=== PATIENT | female | born 1950 | race Hispanic/Latino ===

== ENCOUNTER 2018-03-27 08:11 | Emergency (ER) | payer MEDICARE ==
[2018-03-27 08:20] VITALS: TEMP 97; O2SAT 98
[2018-03-27 08:21] VITALS: BMI 35.5
--- NOTE | 2018-03-27 08:52 | ED PDOC ---
HPI: General Adult Time Seen by Provider: 03/27/18 08:38 Chief Complaint (Nursing): Abnormal Skin Integrity Chief Complaint (Provider): Left Ear Pain/Swelling History Per: Patient History/Exam Limitations: no limitations Onset/Duration Of Symptoms: Days (x2) Current Symptoms Are (Timing): Still Present Additional Complaint(s): 67-year-old female, with no significant past medical history, presenting for evaluation of left ear pain and swelling x2 days. Patient denies any fever, trauma, or discharge. PMD: Dr. Ferrell Past Medical History Vital Signs: Last Vital Signs Temp 97 F L 03/27/18 08:20 Pulse 73 03/27/18 08:20 Resp 24 03/27/18 08:20 BP 126/69 03/27/18 08:20 Pulse Ox 98 03/27/18 09:04 - Medical History PMH: Diabetes, Hyperlipidemia - Family History Family History: States: Diabetes - Home Medications Home Medications: Ambulatory Orders Medication Instructions Recorded Clindamycin [Cleocin] 300 mg PO TID #30 cap 03/27/18 Naproxen [Naprosyn] 500 mg PO Q12H #20 tab 03/27/18 - Allergies Allergies/Adverse Reactions: Allergies Allergy/AdvReac Type Severity Reaction Status Date / Time ANESTHESIA AdvReac VOMITING Uncoded 03/17/15 07:52 Review of Systems ROS Statement: Except As Marked, All Systems Reviewed And Found Negative Constitutional: Negative for: Fever ENT: Positive for: Ear Pain (left). Negative for: Ear Discharge Physical Exam - Reviewed Nursing Documentation Reviewed: Yes Vital Signs Reviewed: Yes - Physical Exam Appears: Positive for: Non-toxic, No Acute Distress Head Exam: Positive for: ATRAUMATIC Skin: Positive for: Normal Color, Warm, Dry Eye Exam: Positive for: Normal appearance ENT: Positive for: Other (left ear with mild swelling, tenderness to pinna; earlobe no fluctuance, no erythema) Neck: Positive for: Normal Cardiovascular/Chest: Positive for: Regular Rate, Rhythm. Negative for: Murmur Respiratory: Positive for: Normal Breath Sounds. Negative for: Respiratory Distress Extremity: Positive for: Normal ROM. Negative for: Deformity Neurologic/Psych: Positive for: Alert, Oriented. Negative for: Motor/Sensory Deficits - Laboratory Results Result Diagrams: 03/27/18 09:05 03/27/18 09:05 - ECG O2 Sat by Pulse Oximetry: 98 (RA) Pulse Ox Interpretation: Normal Medical Decision Making Medical Decision Making: Plan: -CMP -CBC -Clindamycin 600mg/50ml IVPB -Blood culture -Reevaluation Scribe Attestation: Documented by Isaac Hooks, acting as a scribe for Charly Jorgensen MD. Provider Scribe Attestation: All medical record entries made by the Scribe were at my direction and personally dictated by me. I have reviewed the chart and agree that the record accurately reflects my personal performance of the history, physical exam, medical decision making, and the department course for this patient. I have also personally directed, reviewed, and agree with the discharge instructions and disposition. Disposition - Clinical Impression Clinical Impression: Otitis externa - Patient ED Disposition Is Patient to be Admitted: No Counseled Patient/Family Regarding: Studies Performed, Diagnosis, Need For Followup, Rx Given - Disposition Referrals: Layton Pena MD [Staff Provider] - Disposition: Routine/Home Disposition Time: 09:35 Condition: FAIR Prescriptions: Clindamycin [Cleocin] 300 mg PO TID #30 cap Naproxen [Naprosyn] 500 mg PO Q12H #20 tab Instructions: Outer Ear Infection Forms: [employer] ([employer])
[2018-03-27] MEDS ORDERED: Clindamycin 600mg/50ml D5W 300 MG/25 ML VIAL IVPB ONE (09:15)
[2018-03-27 09:17] LABS: BASO # 0.1 K/uL (0.0-0.2); BASO % 0.8 % (0.0-2.0); EOS # 0.5 K/uL (0.0-0.7); HEMOGLOBIN 10.2 g/dL (12.0-16.0); LYMPH # 2.2 K/uL (1.0-4.3); LYMPH % 24.1 % (20.0-40.0); MEAN CELL VOLUME 75.2 fl (81.0-99.0); MEAN CORPUSCULAR HEMOGLOBIN 23.7 pg (27.0-31.0); MEAN CORPUSCULAR HGB CONC 31.5 g/dL (33.0-37.0); MEAN PLATELET VOLUME 9.4 fl (7.2-11.7); MONO # 0.7 K/uL (0.0-0.8); MONO % 7.4 % (0.0-10.0); NEUT # 5.6 K/uL (1.8-7.0); NEUT % 61.7 % (50.0-75.0); RBC 4.3 Mil/uL (3.80-5.20); RED CELL DISTRIBUTION WIDTH 17.4 % (11.5-14.5); WHITE BLOOD COUNT 9.1 K/uL (4.8-10.8)
[2018-03-27] MEDS ORDERED: Clindamycin 600mg/50ml D5W 600 MG/50 ML VIAL IVPB ONE (09:30)
[2018-03-27 09:32] LABS: ALB/GLOB RATIO 1.4 (1.0-2.1); ALT/SGPT 34 U/L (9-52); AST/SGOT 26 U/L (14-36); BLOOD UREA NITROGEN 13 mg/dl (7-17); CALCIUM 9.9 mg/dL (8.4-10.2); GFR AFRICAN-AMERICAN > 60; GFR NON-AFRICAN AMERICAN > 60
[2018-03-27 10:47] VITALS: BP 120/70; PULSE 70; RESP 20
== END 2018-03-27 10:35 | disposition home or self-care (01) ==
LOC: H.ER 08:11
DX: H60.92 Unspecified otitis externa, left ear (principal); E11.9 Type 2 diabetes mellitus without complications; E78.5 Hyperlipidemia, unspecified

== ENCOUNTER 2018-11-28 09:53 | Observation (INO) | payer MEDICARE ==
[2018-11-28 10:04] VITALS: BMI 37.5
--- NOTE | 2018-11-28 10:47 | ED PDOC ---
Lower Extremity Pain/Injury Time Seen by Provider: 11/28/18 10:15 Chief Complaint (Provider): Left Leg Pain History Per: Patient History/Exam Limitations: no limitations Onset/Duration Of Symptoms: Days (3) Current Symptoms Are (Timing): Still Present Additional Complaint(s): 68 year old female with a history of diabetes presents to the ED for an evaluation of atraumatic left leg pain onset for 3 days. Patient reports of one day of swelling. Otherwise, she denies history of DVT, chest pain or shortness of breath. PMD: Dr. Rivera ([place], [place]) Past Medical History Reviewed: Historical Data, Nursing Documentation, Vital Signs Vital Signs: Last Vital Signs Temp 98.5 F 11/28/18 10:03 Pulse 82 11/28/18 10:03 Resp 18 11/28/18 10:03 BP 154/83 H 11/28/18 10:03 Pulse Ox 96 11/28/18 10:03 - Medical History PMH: Diabetes, Hyperlipidemia - Surgical History Surgical History: No Surg Hx - Family History Family History: States: Diabetes - Social History Current smoker - smoking cessation education provided: No Alcohol: None Drugs: Denies - Home Medications Home Medications: Ambulatory Orders Medication Instructions Recorded Aspirin [Ecotrin] 81 mg PO DAILY 11/28/18 Glimepiride [amaRYL] 2 mg PO BID 11/28/18 MetFORMIN [glucoPHAGE] 1,000 mg PO BID 11/28/18 Sertraline [Zoloft] 100 mg PO DAILY 11/28/18 Simvastatin [Zocor] 40 mg PO HS 11/28/18 - Allergies Allergies/Adverse Reactions: Allergies Allergy/AdvReac Type Severity Reaction Status Date / Time ANESTHESIA AdvReac VOMITING Uncoded 03/17/15 07:52 Review of Systems ROS Statement: Except As Marked, All Systems Reviewed And Found Negative Constitutional: Negative for: Fever Cardiovascular: Negative for: Chest Pain Respiratory: Negative for: Shortness of Breath Musculoskeletal: Positive for: Leg Pain (left) Physical Exam - Reviewed Nursing Documentation Reviewed: Yes Vital Signs Reviewed: Yes - Physical Exam Appears: Positive for: Well, Non-toxic, No Acute Distress Head Exam: Positive for: ATRAUMATIC, NORMAL INSPECTION, NORMOCEPHALIC Skin: Positive for: Normal Color, Warm, Dry. Negative for: Rash Eye Exam: Positive for: EOMI, Normal appearance, PERRL Pulses-Dorsalis Pedis (L): 2+ Pulses-Dorsalis Pedis (R): 2+ Extremity: Positive for: Tenderness (left calf ), Calf Tenderness (left), Capillary Refill (less than 2 seconds ), Other (no cellulitis and neurovascular intact ). Negative for: Deformity Neurological/Psych: Positive for: Awake, Alert, Normal Tone, Oriented (x3) - Laboratory Results Result Diagrams: 11/28/18 15:11 11/28/18 15:11 - ECG O2 Sat by Pulse Oximetry: 96 (RA) Pulse Ox Interpretation: Normal Medical Decision Making Medical Decision Making: Time: 10:42 Impression: left leg pain r/o DVT Plan: Duplex lower extremity view left [US] Reevaluation 12:36 Duplex lower extremity view left [US] FINDINGS: 2-D, color and duplex Doppler analysis of the lower extremity venous circulation using routine protocol from the femoral veins through the popliteal veins. Additional imaging of the calf includes the tibialis posterior veins. The lesser saphenous and gastrocnemius veins were also evaluated. Venous compressibility: Incompletely occlusive thrombus in left popliteal vein, noncompressible. There is also occlusive thrombus in the left gastrocnemius vein. Incidental superficial thrombosis is noted in the left lesser saphenous vein. Flow and augmentation patterns: Normal. Visualized veins upper third of calf: Normal. Boss cyst: None. IMPRESSION: Incompletely occlusive thrombus in the left popliteal vein. Occlusive thrombosis of the left gastric knee medius vein. Superficial thrombosis of the left lesser saphenous vein. 12:50 Discussed results with patient at bedside 12:[address] Desouza and patient will be admitted to him for DVT lovenox ordered as renal function is ok Scribe Attestation: Documented by Dipak Pedraza, acting as a scribe for Katey Swift MD. Provider Scribe Attestation: All medical record entries made by the Scribe were at my direction and personally dictated by me. I have reviewed the chart and agree that the record accurately reflects my personal performance of the history, physical exam, medical decision making, and the department course for this patient. I have also personally directed, reviewed, and agree with the discharge instructions and disposition. Disposition - Clinical Impression Clinical Impression: DVT (deep venous thrombosis) - Patient ED Disposition Is Patient to be Admitted: Yes Counseled Patient/Family Regarding: Diagnosis - Disposition Disposition Time: 12:50 Condition: STABLE
--- NOTE | 2018-11-28 12:39 | US ---
Date of service: 11/28/2018 HISTORY: leg pain. PRIORS: None. FINDINGS: 2-D, color and duplex Doppler analysis of the lower extremity venous circulation using routine protocol from the femoral veins through the popliteal veins. Additional imaging of the calf includes the tibialis posterior veins. The lesser saphenous and gastrocnemius veins were also evaluated. Venous compressibility: Incompletely occlusive thrombus in left popliteal vein, noncompressible. There is also occlusive thrombus in the left gastrocnemius vein. Incidental superficial thrombosis is noted in the left lesser saphenous vein. Flow and augmentation patterns: Normal. Visualized veins upper third of calf: Normal. Boss cyst: None. IMPRESSION: Incompletely occlusive thrombus in the left popliteal vein. Occlusive thrombosis of the left gastric knee medius vein. Superficial thrombosis of the left lesser saphenous vein.
[2018-11-28 15:16] LABS: BASO # 0.1 K/uL (0.0-0.2); BASO % 1.4 % (0.0-2.0); EOS # 0.8 K/uL (0.0-0.7); EOS % 8.7 % (0.0-4.0); HEMOGLOBIN 11.4 g/dL (12.0-16.0); LYMPH # 3.1 K/uL (1.0-4.3); LYMPH % 34.6 % (20.0-40.0); MEAN CORPUSCULAR HEMOGLOBIN 24.4 pg (27.0-31.0); MEAN CORPUSCULAR HGB CONC 31.7 g/dL (33.0-37.0); MONO # 0.7 K/uL (0.0-0.8); MONO % 7.8 % (0.0-10.0); NEUT # 4.3 K/uL (1.8-7.0); NEUT % 47.5 % (50.0-75.0); RBC 4.69 Mil/uL (3.80-5.20); RED CELL DISTRIBUTION WIDTH 18.8 % (11.5-14.5); WHITE BLOOD COUNT 9.1 K/uL (4.8-10.8)
[2018-11-28 15:25] LABS: PROTHROMBIN TIME 11.2 Seconds (9.8-13.1)
[2018-11-28 15:42] LABS: ALB/GLOB RATIO 1.3 (1.0-2.1); ALBUMIN 4.4 g/dL (3.5-5.0); BLOOD UREA NITROGEN 17 mg/dl (7-17); CALCIUM 9.6 mg/dL (8.4-10.2); GFR NON-AFRICAN AMERICAN > 60
[2018-11-28 15:44] LABS: ALT/SGPT 35 U/L (9-52); AST/SGOT 39 U/L (14-36)
[2018-11-28] MEDS ORDERED: Enoxaparin 100 mg Syringe SC STA (16:29)
[2018-11-28] MEDS: Insulin Regular 100 units/ml SC SCH (22:33)
[2018-11-29 00:31] VITALS: O2SAT 95
[2018-11-29] MEDS ORDERED: Enoxaparin 100 mg Syringe SC SCH (04:00)
[2018-11-29 06:54] LABS: BASO # 0.1 K/uL (0.0-0.2); BASO % 0.9 % (0.0-2.0); EOS # 0.7 K/uL (0.0-0.7); EOS % 10.1 % (0.0-4.0); LYMPH # 2.8 K/uL (1.0-4.3); LYMPH % 41.4 % (20.0-40.0); MEAN CELL VOLUME 76.5 fl (81.0-99.0); MEAN CORPUSCULAR HGB CONC 31.4 g/dL (33.0-37.0); MEAN PLATELET VOLUME 10.2 fl (7.2-11.7); MONO # 0.5 K/uL (0.0-0.8); MONO % 6.9 % (0.0-10.0); NEUT # 2.7 K/uL (1.8-7.0); NEUT % 40.7 % (50.0-75.0); NRBC % 0.3 % (0.0-0.0); RBC 4.6 Mil/uL (3.80-5.20); RED CELL DISTRIBUTION WIDTH 18.4 % (11.5-14.5); WHITE BLOOD COUNT 6.7 K/uL (4.8-10.8)
[2018-11-29 07:15] LABS: ALB/GLOB RATIO 1.3 (1.0-2.1); ALBUMIN 4.1 g/dL (3.5-5.0); ALT/SGPT 33 U/L (9-52); AST/SGOT 34 U/L (14-36); BLOOD UREA NITROGEN 18 mg/dl (7-17); CALCIUM 9.5 mg/dL (8.4-10.2); GFR NON-AFRICAN AMERICAN > 60; HDL CHOLESTEROL 60 MG/DL (30-70)
[2018-11-29 07:22] LABS: LDL CHOLESTEROL 82 mg/dL (0-129)
--- NOTE | 2018-11-29 07:58 | CP.PCM.HP ---
<Ricardo Sands - Last Filed: 11/29/18 11:30> History of Present Illness - History of Present Illness History of Present Illness: 68 y/o F with a PMHx of HLD and DM presented to ED with 3 days Hx of left lower leg pain, redness and welling. At ED, US doppler showed DVT on L popliteal vein, L musa knee medius vein and saphenous vein. --Today, pt was see and examined with Dr Desouza by bedside. pt reports that swelling and redness have remarkably improved. Pain is not present anymore. Pt a ferbile, tolerating PO. Pt denies recent travel, long driving, recent surgery or personal Hx of coagulopathy. pt reports she has a cousing who from DVT that spread into lungs when he was 32 y/o. PMD: Dr. Miguel UGALDE Meds: as per EMR PMHx: HLD, DM PSHx: Denied FHx: 1 cousin with DVT/PE, 2 cousins w/ breast cancer. SHx: Pt quit smoking 10 years ago. No alcohol and NO rec drugs. Present on Admission - Present on Admission Any Indicators Present on Admission: No History of DVT/PE: No Review of Systems - Constitutional Constitutional: absent: Chills, Excessive Sweating, Fever - EENT Eyes: absent: Blurred Vision, Change in Vision, Diplopia Nose/Mouth/Throat: absent: Nasal Congestion, Sore Throat, Neck Pain, Neck Mass - Cardiovascular Cardiovascular: absent: Chest Pain, Dyspnea, Edema - Respiratory Respiratory: absent: Cough, Dyspnea, Hemoptysis - Gastrointestinal Gastrointestinal: absent: Abdominal Pain, Diarrhea, Nausea, Vomiting - Integumentary Integumentary: absent: Bleeding Lesions, Change in Pigmentation, Pruritus Past Patient History - Past Medical History & Family History Past Medical History?: Yes - Past Social History Smoking Status: Never Smoked - CARDIAC Hx Cardiac Disorders: No - PULMONARY Hx Respiratory Disorders: No - NEUROLOGICAL Hx Neurological Disorder: No - HEENT Hx HEENT Problems: No - RENAL Hx Chronic Kidney Disease: No - ENDOCRINE/METABOLIC Hx Diabetes Mellitus Type 2: Yes - HEMATOLOGICAL/ONCOLOGICAL Hx Blood Disorders: No - INTEGUMENTARY Hx Dermatological Problems: No - MUSCULOSKELETAL/RHEUMATOLOGICAL Hx Musculoskeletal Disorders: Yes Hx Falls: Yes - GASTROINTESTINAL Hx Gastrointestinal Disorders: No - GENITOURINARY/GYNECOLOGICAL Hx Genitourinary Disorders: No - PSYCHIATRIC Hx Psychophysiologic Disorder: No Hx Substance Use: No - SURGICAL HISTORY Hx Surgeries: Yes Other/Comment: REMOVAL OF CYST ON HER BACK. 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 - ANESTHESIA Hx Anesthesia: Yes Hx Anesthesia Reactions: Yes (vomitting) Meds Home Medications: Home Medication List Medication Instructions Recorded Confirmed Type Apixaban [Eliquis] 5 mg PO BID #14 tab 11/29/18 Rx Apixaban [Eliquis] 10 mg PO BID #14 tab 11/29/18 Rx Allergies/Adverse Reactions: Allergies Allergy/AdvReac Type Severity Reaction Status Date / Time ANESTHESIA AdvReac VOMITING Uncoded 03/17/15 07:52 Physical Exam - Constitutional Appears: No Acute Distress - Head Exam Head Exam: ATRAUMATIC, NORMAL INSPECTION, NORMOCEPHALIC - Eye Exam Eye Exam: EOMI, Normal appearance - ENT Exam ENT Exam: Mucous Membranes Moist - Neck Exam Neck exam: Positive for: Full Rom, Normal Inspection. Negative for: Lymphadenopathy, Meningismus - Respiratory Exam Respiratory Exam: Clear to Auscultation Bilateral, NORMAL BREATHING PATTERN - Cardiovascular Exam Cardiovascular Exam: REGULAR RHYTHM, +S1, +S2 - GI/Abdominal Exam GI & Abdominal Exam: Normal Bowel Sounds, Soft. absent: Firm, Guarding, Tenderness - Extremities Exam Extremities exam: Positive for: calf tenderness (on L lower leg.), full ROM. Negative for: pedal edema Additional comments: No remarkable erythema or swelling on b/l legs. - Back Exam Back exam: absent: CVA tenderness (L), CVA tenderness (R) - Neurological Exam Neurological exam: Alert, Normal Gait, Oriented x3 - Psychiatric Exam Psychiatric exam: Normal Affect, Normal Mood Results - Vital Signs Recent Vital Signs: Last Vital Signs Temp 98.1 F 11/29/18 00:30 Pulse 65 11/29/18 00:30 Resp 19 11/29/18 00:30 BP 103/59 L 11/29/18 00:30 Pulse Ox 95 11/29/18 00:30 - Labs Result Diagrams: 11/29/18 04:29 11/29/18 04:29 Labs: Laboratory Results - last 24 hr 11/28/18 11/28/18 11/28/18 15:11 15:11 15:11 WBC 9.1 RBC 4.69 Hgb 11.4 L Hct 36.1 MCV 77.0 L MCH 24.4 L MCHC 31.7 L RDW 18.8 H Plt Count 275 MPV 10.0 Neut % (Auto) 47.5 L Lymph % (Auto) 34.6 [place] % (Auto) 7.8 Eos % (Auto) 8.7 H Baso % (Auto) 1.4 Neut # (Auto) 4.3 Lymph # (Auto) 3.1 [place] # (Auto) 0.7 Eos # (Auto) 0.8 H Baso # (Auto) 0.1 PT 11.2 INR 1.0 Sodium 138 Potassium 4.8 Chloride 106 Carbon Dioxide 23 Anion Gap 14 BUN 17 Creatinine 0.6 L Est GFR ( Amer) > 60 Est GFR (Non-Af Amer) > 60 POC Glucose (mg/dL) Random Glucose 94 Calcium 9.6 Total Bilirubin 0.5 AST 39 H D ALT 35 Alkaline Phosphatase 67 Total Protein 7.8 Albumin 4.4 Globulin 3.5 Albumin/Globulin Ratio 1.3 Triglycerides Cholesterol LDL Cholesterol Direct HDL Cholesterol Vitamin B12 11/28/18 11/29/18 11/29/18 21:41 04:29 04:29 WBC 6.7 RBC 4.60 Hgb 11.0 L Hct 35.2 MCV 76.5 L MCH 24.0 L MCHC 31.4 L RDW 18.4 H Plt Count 256 MPV 10.2 Neut % (Auto) 40.7 L Lymph % (Auto) 41.4 H [place] % (Auto) 6.9 Eos % (Auto) 10.1 H Baso % (Auto) 0.9 Neut # (Auto) 2.7 Lymph # (Auto) 2.8 [place] # (Auto) 0.5 Eos # (Auto) 0.7 Baso # (Auto) 0.1 PT INR Sodium 139 Potassium 4.8 Chloride 103 Carbon Dioxide 29 Anion Gap 12 BUN 18 H Creatinine 0.8 Est GFR ( Amer) > 60 Est GFR (Non-Af Amer) > 60 POC Glucose (mg/dL) 124 H Random Glucose 149 H Calcium 9.5 Total Bilirubin 0.4 AST 34 ALT 33 Alkaline Phosphatase 76 Total Protein 7.1 Albumin 4.1 Globulin 3.1 Albumin/Globulin Ratio 1.3 Triglycerides 247 H D Cholesterol 185 LDL Cholesterol Direct 82 HDL Cholesterol 60 Vitamin B12 481 11/29/18 05:25 WBC RBC Hgb Hct MCV MCH MCHC RDW Plt Count MPV Neut % (Auto) Lymph % (Auto) [place] % (Auto) Eos % (Auto) Baso % (Auto) Neut # (Auto) Lymph # (Auto) [place] # (Auto) Eos # (Auto) Baso # (Auto) PT INR Sodium Potassium Chloride Carbon Dioxide Anion Gap BUN Creatinine Est GFR ( Amer) Est GFR (Non-Af Amer) POC Glucose (mg/dL) 177 H Random Glucose Calcium Total Bilirubin AST ALT Alkaline Phosphatase Total Protein Albumin Globulin Albumin/Globulin Ratio Triglycerides Cholesterol LDL Cholesterol Direct HDL Cholesterol Vitamin B12 Assessment & Plan - Assessment and Plan (Free Text) Assessment: 68 y/o F with a PMHx of HLD and DM admitted for evaluation and management of unprovoked LLE DVT. --Doppler US of LLE: Incompletely occlusive thrombus in the left popliteal vein. Occlusive thrombosis of the left gastric knee medius vein. Superficial thrombosis of the left lesser saphenous vein. PLAN: >LLE unprovoked DVT --Vital signs stable, afebrile, no tachycardia. --Possible Hx of coagulopathy in a cousin. --No hormonal therapy, no Hx of traveling or being immobilized. --Hematology consult, Dr Isa Marcos. --Coagulopathy work-up ordered. --Continue with therapeutic Lovenox --Considering Eliquis or Xarelto upon discharge. >DM --Home meds resumed --ISS and hypoglycemia protocol >HLD --Home meds resumed Case discussed with Dr Lyly Sands PGY-2 <Jesus Desouza - Last Filed: 11/29/18 12:23> Results - Vital Signs Recent Vital Signs: Last Vital Signs Temp 97.7 F 11/29/18 08:53 Pulse 62 11/29/18 08:53 Resp 18 11/29/18 08:53 BP 105/65 11/29/18 08:53 Pulse Ox 95 11/29/18 08:53 - Labs Result Diagrams: 11/29/18 04:29 11/29/18 04:29 Labs: Laboratory Results - last 24 hr 11/28/18 11/28/18 11/28/18 15:11 15:11 15:11 WBC 9.1 RBC 4.69 Hgb 11.4 L Hct 36.1 MCV 77.0 L MCH 24.4 L MCHC 31.7 L RDW 18.8 H Plt Count 275 MPV 10.0 Neut % (Auto) 47.5 L Lymph % (Auto) 34.6 [place] % (Auto) 7.8 Eos % (Auto) 8.7 H Baso % (Auto) 1.4 Neut # (Auto) 4.3 Lymph # (Auto) 3.1 [place] # (Auto) 0.7 Eos # (Auto) 0.8 H Baso # (Auto) 0.1 PT 11.2 INR 1.0 Sodium 138 Potassium 4.8 Chloride 106 Carbon Dioxide 23 Anion Gap 14 BUN 17 Creatinine 0.6 L Est GFR ( Amer) > 60 Est GFR (Non-Af Amer) > 60 POC Glucose (mg/dL) Random Glucose 94 Calcium 9.6 Total Bilirubin 0.5 AST 39 H D ALT 35 Alkaline Phosphatase 67 Total Protein 7.8 Albumin 4.4 Globulin 3.5 Albumin/Globulin Ratio 1.3 Triglycerides Cholesterol LDL Cholesterol Direct HDL Cholesterol Vitamin B12 11/28/18 11/29/18 11/29/18 21:41 04:29 04:29 WBC 6.7 RBC 4.60 Hgb 11.0 L Hct 35.2 MCV 76.5 L MCH 24.0 L MCHC 31.4 L RDW 18.4 H Plt Count 256 MPV 10.2 Neut % (Auto) 40.7 L Lymph % (Auto) 41.4 H [place] % (Auto) 6.9 Eos % (Auto) 10.1 H Baso % (Auto) 0.9 Neut # (Auto) 2.7 Lymph # (Auto) 2.8 [place] # (Auto) 0.5 Eos # (Auto) 0.7 Baso # (Auto) 0.1 PT INR Sodium 139 Potassium 4.8 Chloride 103 Carbon Dioxide 29 Anion Gap 12 BUN 18 H Creatinine 0.8 Est GFR ( Amer) > 60 Est GFR (Non-Af Amer) > 60 POC Glucose (mg/dL) 124 H Random Glucose 149 H Calcium 9.5 Total Bilirubin 0.4 AST 34 ALT 33 Alkaline Phosphatase 76 Total Protein 7.1 Albumin 4.1 Globulin 3.1 Albumin/Globulin Ratio 1.3 Triglycerides 247 H D Cholesterol 185 LDL Cholesterol Direct 82 HDL Cholesterol 60 Vitamin B12 481 11/29/18 11/29/18 05:25 10:49 WBC RBC Hgb Hct MCV MCH MCHC RDW Plt Count MPV Neut % (Auto) Lymph % (Auto) [place] % (Auto) Eos % (Auto) Baso % (Auto) Neut # (Auto) Lymph # (Auto) [place] # (Auto) Eos # (Auto) Baso # (Auto) PT INR Sodium Potassium Chloride Carbon Dioxide Anion Gap BUN Creatinine Est GFR ( Amer) Est GFR (Non-Af Amer) POC Glucose (mg/dL) 177 H 156 H Random Glucose Calcium Total Bilirubin AST ALT Alkaline Phosphatase Total Protein Albumin Globulin Albumin/Globulin Ratio Triglycerides Cholesterol LDL Cholesterol Direct HDL Cholesterol Vitamin B12 Assessment & Plan - Assessment and Plan (Free Text) Assessment: Patient was personally seen and examined by me in rounds with residents. Available labs and diagnostic data reviewed. Case, Patient's condition and management plan discussed with residents in rounds. Agree with resident's progress note. Plan: As ordered.
[2018-11-29] MEDS: Insulin Regular 100 units/ml SC SCH ×2 (08:32→12:24)
[2018-11-29 08:55] VITALS: BP 105/65; PULSE 62; RESP 18; TEMP 97.7
[2018-11-29] MEDS ORDERED: Enoxaparin 40 mg Syringe SC SCH (09:00)
[2018-11-29] MEDS ORDERED: GlipiZIDE 5 mg SR Tab PO SCH (09:00)
--- NOTE | 2018-11-29 10:55 | CP.PCM.CON ---
History of Present Illness - History of Present Illness History of Present Illness: This is a 68 yrs old female who qas brought to the ER for swelling of the left lower extremity. A venous doppler was done and she was found to have a DVT in the femoral vein. There was no h/o a long travel, hormonal medication,immobility or malignancy. This is her first episode of a thrombosis. There is no family h/o thromboembolic disease, 2 cousins have breast cancer. She has had tests done for hypercoagulability and I added a few more. 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 Past h/o hypertension and diabetes mellitus. Is not a smoker. Past Patient History - Past Medical History & Family History Past Medical History?: Yes - Past Social History Smoking Status: Never Smoked - CARDIAC Hx Cardiac Disorders: No - PULMONARY Hx Respiratory Disorders: No - NEUROLOGICAL Hx Neurological Disorder: No - HEENT Hx HEENT Problems: No - RENAL Hx Chronic Kidney Disease: No - ENDOCRINE/METABOLIC Hx Diabetes Mellitus Type 2: Yes - HEMATOLOGICAL/ONCOLOGICAL Hx Blood Disorders: No - INTEGUMENTARY Hx Dermatological Problems: No - MUSCULOSKELETAL/RHEUMATOLOGICAL Hx Musculoskeletal Disorders: Yes Hx Falls: Yes - GASTROINTESTINAL Hx Gastrointestinal Disorders: No - GENITOURINARY/GYNECOLOGICAL Hx Genitourinary Disorders: No - PSYCHIATRIC Hx Psychophysiologic Disorder: No Hx Substance Use: No - SURGICAL HISTORY Hx Surgeries: Yes Other/Comment: REMOVAL OF CYST ON HER BACK. 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 - ANESTHESIA Hx Anesthesia: Yes Hx Anesthesia Reactions: Yes (vomitting) Meds Allergies/Adverse Reactions: Allergies Allergy/AdvReac Type Severity Reaction Status Date / Time ANESTHESIA AdvReac VOMITING Uncoded 03/17/15 07:52 - Medications Medications: Current Medications Acetaminophen (Tylenol 325mg Tab) 650 mg PO Q6 PRN PRN Reason: Headache Last Admin: 11/29/18 10:27 Dose: 650 mg Aspirin (Ecotrin) 81 mg PO DAILY [facility] Last Admin: 11/29/18 08:31 Dose: 81 mg Atorvastatin Calcium (Lipitor) 20 mg PO HS [facility] Last Admin: 11/28/18 22:33 Dose: 20 mg Enoxaparin Sodium (Lovenox) 100 mg SC Q12H [facility]; Protocol Last Admin: 11/29/18 04:07 Dose: 100 mg Glipizide (Glucotrol Xl) 5 mg PO BID [facility] Last Admin: 11/29/18 08:31 Dose: 5 mg Insulin Human Regular (Humulin R) 0 units SC [facility]; Protocol Last Admin: 11/29/18 08:32 Dose: 1 unit Metformin HCl (Glucophage) 1,000 mg PO BID [facility] Last Admin: 11/29/18 08:31 Dose: 1,000 mg Sertraline HCl (Zoloft) 100 mg PO DAILY [facility] Last Admin: 11/29/18 08:33 Dose: 100 mg Physical Exam - Additional Findings Additional findings: Physical exam; Alert. well oriented in no acue distress Neck; supple, no adenopathy Chest; Clear, no rales or rhonchi Heart; RSR, no murmur Abd; Soft,no mass, no h/s megaly Results - Vital Signs Recent Vital Signs: Last Vital Signs Temp 97.7 F 11/29/18 08:53 Pulse 62 11/29/18 08:53 Resp 18 11/29/18 08:53 BP 105/65 11/29/18 08:53 Pulse Ox 95 11/29/18 08:53 - Labs Result Diagrams: 11/29/18 04:29 11/29/18 04:29 Labs: Laboratory Results - last 24 hr 11/28/18 11/28/18 11/28/18 15:11 15:11 15:11 WBC 9.1 RBC 4.69 Hgb 11.4 L Hct 36.1 MCV 77.0 L MCH 24.4 L MCHC 31.7 L RDW 18.8 H Plt Count 275 MPV 10.0 Neut % (Auto) 47.5 L Lymph % (Auto) 34.6 Edwards % (Auto) 7.8 Eos % (Auto) 8.7 H Baso % (Auto) 1.4 Neut # (Auto) 4.3 Lymph # (Auto) 3.1 Edwards # (Auto) 0.7 Eos # (Auto) 0.8 H Baso # (Auto) 0.1 PT 11.2 INR 1.0 Sodium 138 Potassium 4.8 Chloride 106 Carbon Dioxide 23 Anion Gap 14 BUN 17 Creatinine 0.6 L Est GFR ( Amer) > 60 Est GFR (Non-Af Amer) > 60 POC Glucose (mg/dL) Random Glucose 94 Calcium 9.6 Total Bilirubin 0.5 AST 39 H D ALT 35 Alkaline Phosphatase 67 Total Protein 7.8 Albumin 4.4 Globulin 3.5 Albumin/Globulin Ratio 1.3 Triglycerides Cholesterol LDL Cholesterol Direct HDL Cholesterol Vitamin B12 11/28/18 11/29/18 11/29/18 21:41 04:29 04:29 WBC 6.7 RBC 4.60 Hgb 11.0 L Hct 35.2 MCV 76.5 L MCH 24.0 L MCHC 31.4 L RDW 18.4 H Plt Count 256 MPV 10.2 Neut % (Auto) 40.7 L Lymph % (Auto) 41.4 H Edwards % (Auto) 6.9 Eos % (Auto) 10.1 H Baso % (Auto) 0.9 Neut # (Auto) 2.7 Lymph # (Auto) 2.8 Edwards # (Auto) 0.5 Eos # (Auto) 0.7 Baso # (Auto) 0.1 PT INR Sodium 139 Potassium 4.8 Chloride 103 Carbon Dioxide 29 Anion Gap 12 BUN 18 H Creatinine 0.8 Est GFR ( Amer) > 60 Est GFR (Non-Af Amer) > 60 POC Glucose (mg/dL) 124 H Random Glucose 149 H Calcium 9.5 Total Bilirubin 0.4 AST 34 ALT 33 Alkaline Phosphatase 76 Total Protein 7.1 Albumin 4.1 Globulin 3.1 Albumin/Globulin Ratio 1.3 Triglycerides 247 H D Cholesterol 185 LDL Cholesterol Direct 82 HDL Cholesterol 60 Vitamin B12 481 11/29/18 05:25 WBC RBC Hgb Hct MCV MCH MCHC RDW Plt Count MPV Neut % (Auto) Lymph % (Auto) Edwards % (Auto) Eos % (Auto) Baso % (Auto) Neut # (Auto) Lymph # (Auto) Edwards # (Auto) Eos # (Auto) Baso # (Auto) PT INR Sodium Potassium Chloride Carbon Dioxide Anion Gap BUN Creatinine Est GFR ( Amer) Est GFR (Non-Af Amer) POC Glucose (mg/dL) 177 H Random Glucose Calcium Total Bilirubin AST ALT Alkaline Phosphatase Total Protein Albumin Globulin Albumin/Globulin Ratio Triglycerides Cholesterol LDL Cholesterol Direct HDL Cholesterol Vitamin B12 Assessment & Plan - Assessment and Plan (Free Text) Assessment: Impression; DVT left lower extremity R/O hypercoagulable state Plan: Plan;Will give her a prescription to r/o a abdominal cause for the DVT. She would like to do it as a out patient. Will check on the results of the tests Start her on eliquis. - Date & Time Date: 11/29/18 Time: 11:17
--- NOTE | 2018-11-29 11:37 | CP.PCM.PCO ---
Assessment/Plan - Assessment/Plan Assessment (Free Text): Pt seen and examined at bedside, stable. Denies any pain to LLE at this time. Pt seen and cleared for d/c home by Dr. Desouza. Pt seen by Dr. Marcos, cleared for d/c home with f/u CT scan A/P and Eliquis. Rx Eliquis given per DVT/PE treatment: 10mg bid x 7 days, then 5mg bid. Rx CT A/P given. Pt instructed to take next montoya of Eliquis at 4:00pm today since Lovenox was last given at 4:00am. Pt instructed to f/u with PMD and Dr. Marcos in 1 week for evaluation and continued Rx of Eliquis.
[2018-12-02 04:40] LABS: CARDIOLIPIN AB (IGA) <11 APL (<=11); CARDIOLIPIN AB (IGG) <14 GPL (<=14); CARDIOLIPIN AB (IGM) 13 MPL (<=12)
== END 2018-11-29 13:00 | disposition home or self-care (01) ==
LOC: H.ER 09:53 → H.ERHOLD 12:55 → H.MEDSURG1 18:23
PROVIDERS: ADMIT Internal Medicine; ATTEND Internal Medicine
DX: I82.412 Acute embolism and thrombosis of left femoral vein (principal); I82.432 Acute embolism and thrombosis of left popliteal vein; E11.9 Type 2 diabetes mellitus without complications; I10 Essential (primary) hypertension; E78.5 Hyperlipidemia, unspecified; Z79.01 Long term (current) use of anticoagulants; Z79.82 Long term (current) use of aspirin; Z79.84 Long term (current) use of oral hypoglycemic drugs; Z87.891 Personal history of nicotine dependence
CPT/HCPCS: 36415; 80053; 80061; 81240; 81241; 81291; 82607; 82948; 85025; 85300; 85303; 85306; 85610; 86146; 86147; 86148; 93971; 96372; 99284; G0378; J1650